=== PATIENT | female | born 1965 | race Caucasian/White ===

== ENCOUNTER 2018-02-06 01:31 | Emergency (ER) | payer BC ==
[2018-02-06 01:37] VITALS: O2SAT 97
[2018-02-06] MEDS ORDERED: Tdap Vaccine 0.5 ml Vial (10-64 yrs) IM ONE ×2 (02:56→03:12)
[2018-02-06] MEDS ORDERED: Sodium Chloride 0.9% 1,000 ML IV ONE (03:02)
--- NOTE | 2018-02-06 03:06 | C.PDOC ---
History Of Present Illness 52 y/o female with htn and hydrocephalus brought to ED s/p trip and fall episode in her bathroom tonight. pt admits to drinking alcohol tonight. niece heard her fall, found her in bathroom awake. no loc. pt hit chin on edge of sink, c/o pain to laceration site. no cp, neck pain, sob, dizziness. Time Seen by Provider: 02/06/18 02:42 Chief Complaint (Nursing): Abnormal Skin Integrity History Per: Patient, Family History/Exam Limitations: no limitations Onset/Duration Of Symptoms: Hrs Current Symptoms Are (Timing): Still Present Location Of Injury: Anterior: Face (chin) Quality Of Symptoms: Painful Severity: Mild Additional History Per: Family Past Medical History Reviewed: Historical Data, Nursing Documentation, Vital Signs Vital Signs: Last Vital Signs Temp 98.2 F 02/06/18 06:00 Pulse 85 02/06/18 06:00 Resp 16 02/06/18 06:00 BP 110/75 02/06/18 06:00 Pulse Ox 97 02/06/18 06:01 - Medical History PMH: No Chronic Diseases Family History: States: Unknown Family Hx - Social History Hx Alcohol Use: Yes Hx Substance Use: No - Immunization History Hx Tetanus Toxoid Vaccination: Yes Hx Influenza Vaccination: No Hx Pneumococcal Vaccination: No Review Of Systems Constitutional: Negative for: Fever, Chills Eyes: Negative for: Pain, Vision Change ENT: Positive for: Other (chin pain). Negative for: Ear Pain, Mouth Pain Cardiovascular: Negative for: Chest Pain, Palpitations Respiratory: Negative for: Cough, Shortness of Breath Gastrointestinal: Negative for: Nausea, Vomiting, Abdominal Pain Skin: Positive for: Other (laceration chin) Neurological: Negative for: Weakness, Numbness, Headache, Dizziness Physical Exam - Physical Exam Appears: Non-toxic, No Acute Distress Skin: Warm, Dry Head: Normacephalic, Laceration (deep 3 cm laceration to right side chin) Eye(s): bilateral: Normal Inspection, PERRL, EOMI Ear(s): Bilateral: Normal Nose: No Discharge Oral Mucosa: Moist Tongue: Normal Appearing Lips: Normal Appearing Throat: No Erythema, No Exudate Neck: No Midline Cervical Tenderness, No Paracervical Tenderness Cardiovascular: Rhythm Regular, No Murmur Respiratory: No Decreased Breath Sounds, No Wheezing Gastrointestinal/Abdominal: Soft, No Tenderness, No Distention, No Guarding, No Rebound Extremity: Normal ROM, No Pedal Edema Extremity: Bilateral: Atraumatic Neurological/Psych: Oriented x3, Normal Speech, Normal Cognition, Normal Cranial Nerves, Normal Sensation, Normal Reflexes ED Course And Treatment O2 Sat by Pulse Oximetry: 97 Laceration - Laceration Repair chin Wound Length (In cm): 3 Description Of Wound: Linear, Clean Wound Cleansed With: Betadine, Sterile Saline Anesthesia: Lidocaine 2% Wound Examination: Irrigated With Saline Wound Closure: Suture (3-0 chromic gut # 2 deep sutures, 5-0ethilon, #8 interrupted sutures) Disposition Counseled Patient/Family Regarding: Diagnosis, Need For Followup, Rx Given - Disposition Referrals: Shaik Perez MD [Staff Provider] - Disposition: HOME/ ROUTINE Disposition Time: 05:49 Condition: IMPROVED Additional Instructions: Please have someone wake you every few hours for next day when sleeping. Keep wound clean and dry; Apply bacitracin 1-2 times per day to wound. Suture removal in 7- 10 days. Return to ER for any severe headache, vomiting, unusual behaviior, seizure, or any other concerns. Follow up with Dr Jo in 1-2 days. Instructions: Closed Head Injury (DC), Laceration Repair With Stitches (DC), Alcohol Abuse and Alcoholism (DC) Forms: [employer] [facility] (Bengali) - Clinical Impression Clinical Impression: Closed head injury, Laceration of chin with complication, Alcohol abuse
[2018-02-06] MEDS ORDERED: Lidocaine 2% Inj (20ml) ONE (04:10)
--- NOTE | 2018-02-06 04:11 | CT ---
EXAM: CT Head Without Intravenous Contrast CLINICAL HISTORY: 52 years old, female; Pain; Headache; Prior surgery; Surgery type: Shunt surgery 2005; Additional info: Syncope vs fall, hit head, HX hydrocephalus TECHNIQUE: Axial computed tomography images of the head/brain without intravenous contrast. All CT scans at this facility use one or more dose reduction techniques, viz.: automated exposure control; ma/kV adjustment per patient size (including targeted exams where dose is matched to indication; i.e. head); or iterative reconstruction technique. Coronal and sagittal reformatted images were created and reviewed. COMPARISON: No relevant prior studies available. FINDINGS: Brain: No intracranial hemorrhage. No mass. Small parenchymal calcification. Metallic densities/coils about posterior fossa/upper cervical canal. No edema. Ventricles: No hydrocephalus. Bones/joints: No acute fracture. Soft tissues: Unremarkable. Sinuses: No acute sinusitis. Mastoid air cells: No mastoid effusion. Orbits: Unremarkable as visualized. Tubes, lines and devices: Ventricular shunt via right frontal approach, tip projected over third ventricle. IMPRESSION: 1. No intracranial hemorrhage. 2. Incidental/non-acute findings are described above.
--- NOTE | 2018-02-06 04:15 | CT ---
EXAM: CT Cervical Spine Without Intravenous Contrast CLINICAL HISTORY: 52 years old, female; Pain; Neck pain; Prior surgery; Surgery type: Shunt surgery 2005; Additional info: Intox, hit chin with laceration TECHNIQUE: Axial computed tomography images of the cervical spine without intravenous contrast. All CT scans at this facility use one or more dose reduction techniques, viz.: automated exposure control; ma/kV adjustment per patient size (including targeted exams where dose is matched to indication; i.e. head); or iterative reconstruction technique. Coronal and sagittal reformatted images were created and reviewed. COMPARISON: No relevant prior studies available. FINDINGS: Vertebrae: No acute fracture. Straightening of cervical spine. Discs/spinal canal/neural foramina: [id number] degenerative disc disease within mid to lower cervical spine. Mild indentation thecal sac/cord lower cervical spine. Neuroforaminal narrowing with mid and lower cervical spine. Soft tissues: Metallic densities/coils about posterior fossa. Lung apices: Unremarkable as visualized. Tubes, lines and devices: Shunt within right neck. IMPRESSION: 1. No fracture. 2. Incidental/non-acute findings are described above.
[2018-02-06] MEDS ORDERED: Lidocaine 2% Inj (20ml) INFIL ONE (05:53)
[2018-02-06] MEDS ORDERED: Bacitracin 500 Units/gm Oint Foilpak UD ONE (05:53)
[2018-02-06] MEDS ORDERED: Bacitracin 500 Units/gm Oint Foilpak UD TOP ONE (05:53)
[2018-02-06 06:30] VITALS: BP 110/75; PULSE 85; RESP 16; TEMP 98.2
== END 2018-02-06 06:01 | disposition home or self-care (01) ==
LOC: C.ER 01:31
DX: S01.81XA Laceration without foreign body of other part of head, initial encounter (principal); W01.198A Fall on same level from slipping, tripping and stumbling with subsequent striking against other object, initial encounter; Y92.002 Bathroom of unspecified non-institutional (private) residence as the place of occurrence of the external cause; F10.10 Alcohol abuse, uncomplicated; Y90.9 Presence of alcohol in blood, level not specified